=== PATIENT | female | born 1975 | race Caucasian/White ===

== ENCOUNTER 2016-07-14 11:40 | Emergency (ER) | payer BC ==
[~2016-07-14] VITALS: Ht 172.7 cm; Wt 136.0 kg
[~2016-07-14 11:40] MED LIST: IBUP-232 PO; ROBA750T PO
[2016-07-14 11:46] VITALS: BP 181/111; PULSE 99; RESP 17; TEMP 98.3; O2SAT 100
[2016-07-14] MEDS ORDERED: AMLO10 PO ×2 (13:01→13:10)
[2016-07-14] MEDS ORDERED: ZITHTAB PO (13:10)
--- NOTE | 2016-07-14 13:11 | PD ---
HPI Chief Complaint: Cold / Flu Symptoms Time Seen by Provider: 13:06 Travel History International Travel<30 days: No Contact w/Intl Traveler<30days: No Traveled to known affect area: No History of Present Illness HPI 41-year-old female with history of hypertension, smoking, presents to the ER today because she has had 2-3 days history of coughing with yellow phlegm production. She denies any shortness of breath, fevers, chest pains, or any other symptoms. She also states that she has ran out of her blood pressure medications and has not taken it for several weeks. She has noticed that her blood pressures have been high intermittently. She states that she has a pumping headache when they do get elevated. She states that she had headache initially when she was coming to the ER but states that the headache is mostly gone now. She denies any other issues. She states that she is in between primary care physicians and does not have one now. Modifying Factors: None Associated Signs & Symptoms: Cough, yellow phlegm production, mild headache, elevated blood pressure Risk Factors: Hypertension history 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 PRIOR TO REMOVAL ) Respiratory: No Immunizations Current: Yes Pneumonia: Yes Radiation Therapy: No Sleep Apnea: No Thyroid Disease: No Influenza Vaccination: No ?: Not LMP: HYSTO : 3 Para: 2 : 1 Tubal Ligation: Yes Past Surgical History Appendectomy: Yes Body Medical Devices: ABDOMENAL MESH FROM HERNIA SURGERY Hysterectomy: Yes (PARTIAL, OVARY AND FIBEROUS UTERUS.) Tonsillectomy: Yes (adnoids) Other Surgery: Yes (HERNIA REPAIR X 2 with mesh) Family History Family Hypercholesterolemia: Yes Social History Alcohol Use: Yes (OCC) Tobacco Use: Yes (1 PPD) Substance Use: No Allergies-Medications (Allergen,Severity, Reaction): Coded Allergies: Penicillin (Verified Allergy, Severe, Rash/SOB, 3/12/17) Sulfa (Verified Allergy, Severe, Rash/SOB, 07/14/16) Reported Meds & Prescriptions Reported Meds & Active Scripts Active Reported Norvasc (Amlodipine Besylate) 10 Mg Tab 10 Mg PO DAILY Review of Systems Except as stated in HPI: all other systems reviewed are Neg Physical Exam Narrative GENERAL: Obese well-developed middle age white female patient in no acute distress awake and oriented 3. SKIN: Warm and dry. HEAD: Atraumatic. Normocephalic. EYES: Pupils equal and round. No scleral icterus. No injection or drainage. ENT: No nasal bleeding or discharge. Mucous membranes pink and moist. NECK: Trachea midline. No JVD. CARDIOVASCULAR: Regular rate and rhythm. No murmur appreciated. RESPIRATORY: No accessory muscle use. Clear to auscultation. Breath sounds equal bilaterally. No crackles, wheezing, rhonchi. GASTROINTESTINAL: Abdomen soft, obese, non-tender, nondistended. Hepatic and splenic margins not palpable. MUSCULOSKELETAL: No obvious deformities. No clubbing. No cyanosis. No edema. NEUROLOGICAL: Awake and alert. No obvious cranial nerve deficits. Motor grossly within normal limits. Normal speech. PSYCHIATRIC: Appropriate mood and affect; insight and judgment normal. Data Data Last Documented VS Vital Signs Date Time Temp Pulse Resp B/P Pulse Ox O2 Delivery O2 Flow Rate FiO2 07/14/16 12:57 100 Room Air 07/14/16 11:46 98.3 99 17 181/111 [facility] Medical Decision Making Medical Screen Exam Complete: Yes Emergency Medical Condition: Yes Medical Record Reviewed: Yes Differential Diagnosis Coughing, yellow phlegm production, headache, elevated blood pressures bronchitis versus URI versus pneumonia versus COPD exacerbation Narrative Course Patient's blood pressure is down to 136/72 on my evaluation. She states her headache is basically nonexistent now. She does not have her blood pressure medications. At this point, my plan would be to refill her blood pressure medications. Pulmonary exam is essentially unremarkable. Considering her smoking history however my plan would be to give her antibiotics and have her follow-up with primary care physician. Return for any worsening in symptoms as necessary. The plan has been discussed with her and she states understanding. Diagnosis Primary Impression: Medication refill Additional Impression: Bronchitis Med/Other Pt SpecificInfo: Prescription(s) given Scripts Azithromycin (Zithromax Z-Pradeep)250 Mg [id number] Mg PO DIRECTED #1 DSPK Ref 0 500 MG (2 tabs) day 1, then 1 tab days 2-5. Prov:Tanvi Sharma MD 07/14/16 Amlodipine (Norvasc)10 Mg Tab10 Mg PO DAILY #30 TAB Ref 0 Prov:Tanvi Sharma MD 07/14/16 Disposition: 01 DISCHARGE HOME Condition: Stable Tanvi Shrama MD Jul 14, 2016 13:11
[2016-07-14 13:21] VITALS: BP 136/87; PULSE 90; RESP 18; O2SAT 100
== END 2016-07-14 13:22 | disposition home or self-care (01) ==
LOC: PHED 11:40
DX: J40 Bronchitis, not specified as acute or chronic (principal); F17.210 Nicotine dependence, cigarettes, uncomplicated; I10 Essential (primary) hypertension; K21.9 Gastro-esophageal reflux disease without esophagitis; Z76.0 Encounter for issue of repeat prescription
CPT/HCPCS: 99283

== ENCOUNTER 2016-09-14 22:58 | Emergency (ER) | payer BC ==
[~2016-09-14] VITALS: Ht 172.7 cm; Wt 142.0 kg
[~2016-09-14 22:58] MED LIST changes: +AMLO10 PO; -IBUP-232 PO; -ROBA750T PO; +ZITHTAB PO
[2016-09-14 23:03] VITALS: BP 148/94; PULSE 105; RESP 20; TEMP 97.9; O2SAT 97
[2016-09-14 23:15] VITALS: O2SAT 97
--- NOTE | 2016-09-14 23:24 | PD ---
HPI Chief Complaint: Injury Time Seen by Provider: 23:14 Travel History International Travel<30 days: No Contact w/Intl Traveler<30days: No Traveled to known affect area: No History of Present Illness HPI The patient is a 41-year-old female that complains of left leg pain and swelling today. She has a history of intermittent knee pain for the past 6 months. She states the pain is now an 8/10. She does have some pain around the calf of the left lower leg. She has never had DVT in the past. She denies any fever. She denies any chest pain or shortness of breath. Motrin has irritated her stomach in the past. 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 PRIOR TO REMOVAL ) Respiratory: No Immunizations Current: Yes Pneumonia: Yes Radiation Therapy: No Sleep Apnea: No Thyroid Disease: No ?: Not : 3 Para: 2 : 1 Tubal Ligation: Yes Past Surgical History Appendectomy: Yes Body Medical Devices: ABDOMENAL MESH FROM HERNIA SURGERY Hysterectomy: Yes (PARTIAL, OVARY AND FIBEROUS UTERUS.) Tonsillectomy: Yes (adnoids) Other Surgery: Yes (HERNIA REPAIR X 2 with mesh) Family History Family Hypercholesterolemia: Yes Social History Alcohol Use: Yes (OCC) Tobacco Use: Yes (1 PPD) Substance Use: No Allergies-Medications (Allergen,Severity, Reaction): Coded Allergies: Penicillin (Verified Allergy, Severe, Rash/SOB, 09/14/16) Sulfa (Verified Allergy, Severe, Rash/SOB, 09/14/16) Reported Meds & Prescriptions Reported Meds & Active Scripts Active Mobic (Meloxicam) 15 Mg Tab 15 Mg PO DAILY Percocet (Oxycodone-Acetaminophen) 5-325 mg Tab 1 Tab PO Q6H PRN Reported Norvasc (Amlodipine Besylate) 10 Mg Tab 10 Mg PO DAILY Review of Systems Except as stated in HPI: all other systems reviewed are Neg Physical Exam Narrative GENERAL: The patient is alert, obese, oriented 3 in moderate apparent distress with her left knee discomfort. Her vital signs show heart rate of 105 and blood pressure 148/94 but are otherwise normal. SKIN: Focused skin assessment warm/dry. HEAD: Atraumatic. Normocephalic. EYES: Pupils equal and round. No scleral icterus. No injection or drainage. ENT: No nasal bleeding or discharge. Mucous membranes pink and moist. NECK: Trachea midline. No JVD. CARDIOVASCULAR: Regular rate and rhythm. No murmur appreciated. RESPIRATORY: No accessory muscle use. Clear to auscultation. Breath sounds equal bilaterally. GASTROINTESTINAL: Abdomen soft, non-tender, nondistended. Hepatic and splenic margins not palpable. MUSCULOSKELETAL: No obvious deformities. No clubbing. No cyanosis. There is 2 + left lower extremity edema and 1+ right lower extremity edema. There is tenderness on the left calf but no cord is palpated there. There is tenderness on the knee, particularly lateral aspect of the left knee. No obvious deformity is noted on the knee. NEUROLOGICAL: Awake and alert. No obvious cranial nerve deficits. Motor grossly within normal limits. Normal speech. PSYCHIATRIC: Appropriate mood and affect; insight and judgment normal. Data Data Last Documented VS Vital Signs Date Time Temp Pulse Resp B/P Pulse Ox O2 Delivery O2 Flow Rate FiO2 09/14/16 23:15 97 09/14/16 23:03 97.9 105 20 148/94 Orders Us Leg Venous Doppler (09/14/16 23:20) Knee, Complete (4vws) (09/14/16 23:20) Ketorolac Inj (Toradol Inj) (09/15/16 00:45) Oxycodone-Acetamin 7.5-325 Mg (Percocet (09/15/16 00:45) MDM Medical Decision Making Medical Screen Exam Complete: Yes Emergency Medical Condition: Yes Medical Record Reviewed: Yes Interpretation(s) X-rays of the right knee are normal. The ultrasound of the left knee shows no evidence of DVT. Differential Diagnosis Arthrosis left knee, arthritis left knee, DVT, Narrative Course The patient has arthrosis of the left knee. Plan: She is to rest and is given Mobic. Diagnosis Primary Impression: Arthrosis of knee Additional Instructions: Get the weight off your knee and follow-up with orthopedics, hopefully next week. The Mobic is one tablet daily. Med/Other Pt SpecificInfo: Prescription(s) given Scripts Meloxicam (Mobic)15 Mg Tab15 Mg PO DAILY #30 TAB Ref 0 Prov:Harvinder Espinoas MD 09/15/16 Oxycodone-Acetaminophen (Percocet)5-325 mg Tab1 Tab PO Q6H PRN (PAIN) #30 TAB Ref 0 Prov:Harvinder Espinosa MD 09/15/16 Disposition: 01 DISCHARGE HOME Condition: Stable Harvinder Espinosa MD September 14, 2016 23:24
--- NOTE | 2016-09-15 00:11 | RADHPO ---
EXAM DATE/TIME: 09/14/2016 23:38 [facility] COMPARISON: No previous studies available for comparison. INDICATIONS : Left lateral knee pain post fall. MEDICAL HISTORY : None. SURGICAL HISTORY : None. ENCOUNTER: Initial ACUITY: 4 - 6 months PAIN SCORE: 8/10 LOCATION: Left lateral knee FINDINGS: Four view examination of the left knee demonstrates no evidence of fracture or dislocation. Bony min eralization is normal. The articular surfaces are intact. The suprapatellar soft tissues have a nor mal configuration. CONCLUSION: Unremarkable exam Nick Vick MD on September 15, 2016 at 0:10 Board Certified Radiologist. This report was verified electronically.
--- NOTE | 2016-09-15 00:30 | RADHPO ---
EXAM DATE/TIME: 09/15/2016 00:12 [facility] COMPARISON: No previous studies available for comparison. INDICATIONS : Left leg swelling and pain. MEDICAL HISTORY : HTN. Pneumonia. GERD. Anxiety. SURGICAL HISTORY : Tonsillectomy. Appendectomy. Tubal ligation. Adenoidectomy. Hyserectomy. Oophorectomy. Hernia repair x2 with mesh. ENCOUNTER: Initial ACUITY: 1 day PAIN SCORE: 8/10 LOCATION: Left leg. TECHNIQUE: Venous ultrasound of the leg was performed from the inguinal ligament to the proximal calf. Real-ahsan e, color Doppler and spectral tracing, compression and augmentation techniques were used. FINDINGS: There is normal compressibility of the deep venous system from the inguinal region to the proximal ca lf. No echogenic clot is seen in the lumen of the common femoral, femoral, popliteal, and posterior tibial veins. There is a normal response of the venous system to proximal and distal augmentation an d respiration. CONCLUSION: No evidence of DVT. Nick Vick MD on September 15, 2016 at 0:28 Board Certified Radiologist. This report was verified electronically.
[2016-09-15] MEDS ORDERED: MOBI15TA PO (00:43)
[2016-09-15] MEDS ORDERED: PERC5TAB12 PO (00:43)
[2016-09-15] MEDS ORDERED: KETOROLAC TROMETHAMINE 60 MG/2 ML (IM) VIAL IM ONE (00:45)
[2016-09-15] MEDS ORDERED: oxyCODONE/ACETAMINOPHEN 7.5 MG/325 MG TAB PO ONE (00:45)
== END 2016-09-15 01:10 | disposition home or self-care (01) ==
LOC: PHED 22:58
DX: M17.12 Unilateral primary osteoarthritis, left knee (principal); F41.9 Anxiety disorder, unspecified; I10 Essential (primary) hypertension
CPT/HCPCS: 73564; 93971; 96372; 99284; J1885

== ENCOUNTER 2016-10-05 14:07 | Emergency (ER) | payer SELFPAY ==
[~2016-10-05 14:07] MED LIST changes: +MOBI15TA PO; +PERC5TAB12 PO; -ZITHTAB PO
[2016-10-05 14:20] VITALS: BP 180/97; PULSE 98; RESP 18; O2SAT 97
[2016-10-05] MEDS ORDERED: cloNIDine HCL 0.1 MG TAB PO ONE (14:30)
--- NOTE | 2016-10-05 14:38 | PD ---
HPI Chief Complaint: Edema Time Seen by Provider: 14:28 Travel History International Travel<30 days: No Contact w/Intl Traveler<30days: No Traveled to known affect area: No History of Present Illness HPI Patient presents for swelling in her bilateral lower extremities and left shoulder pain. Reports dyspnea on exertion. Denies any nausea vomiting diarrhea or fever. Denies any cough. Denies any trauma misstep or fall. Normally takes Norvasc for blood pressure. Noncompliant for 2 weeks. 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 PRIOR TO REMOVAL ) Respiratory: No Immunizations Current: Yes Pneumonia: Yes Radiation Therapy: No Sleep Apnea: No Thyroid Disease: No ?: Not : 3 Para: 2 : 1 Tubal Ligation: Yes Past Surgical History Abdominal Surgery: Yes (HERNIORRHAPHY X 2) Appendectomy: Yes Body Medical Devices: ABDOMENAL MESH FROM HERNIA SURGERY Hysterectomy: Yes Tonsillectomy: Yes (adnoids) Other Surgery: Yes Family History Family Hypercholesterolemia: Yes Social History Alcohol Use: Yes (OCC) Tobacco Use: Yes (1 PPD) Substance Use: No Allergies-Medications (Allergen,Severity, Reaction): Coded Allergies: Penicillin (Verified Allergy, Severe, Rash/SOB, 10/05/16) Sulfa (Verified Allergy, Severe, Rash/SOB, 10/05/16) Reported Meds & Prescriptions Reported Meds & Active Scripts Active Reported Norvasc (Amlodipine Besylate) 10 Mg Tab 10 Mg PO DAILY Review of Systems General / Constitutional: No: Fever Eyes: No: Visual changes HENT: No: Headaches Cardiovascular: No: Chest Pain or Discomfort Respiratory: Positive: Shortness of Breath (shortness of breath is on exertion only, bilateral lower extremity edema) Gastrointestinal: No: Abdominal Pain Genitourinary: No: Dysuria Musculoskeletal: No: Pain Skin: No Rash Neurologic: No: Weakness Psychiatric: No: Depression Endocrine: No: Polydipsia Hematologic/Lymphatic: No: Easy Bruising Physical Exam Narrative GENERAL: Well-nourished, well-developed patient. SKIN: Focused skin assessment warm/dry. HEAD: Normocephalic. EYES: No scleral icterus. No injection or drainage. NECK: Supple, trachea midline. No JVD or lymphadenopathy. CARDIOVASCULAR: Regular rate and rhythm without murmurs, gallops, or rubs. RESPIRATORY: Breath sounds equal bilaterally. No accessory muscle use. GASTROINTESTINAL: Abdomen soft, non-tender, nondistended. MUSCULOSKELETAL: No cyanosis, no appreciable edema. BACK: Nontender without obvious deformity. No CVA tenderness. Examination of the left shoulder reveals full range of motion with mild discomfort no crepitus erythema or edema no bony deformities Data Data Last Documented VS Vital Signs Date Time Temp Pulse Resp B/P Pulse Ox O2 Delivery O2 Flow Rate FiO2 10/05/16 15:25 95 16 164/72 96 10/05/16 14:20 Room Air Orders Clonidine (Catapres) (10/05/16 14:30) Electrocardiogram (10/05/16 14:13) MDM Medical Decision Making Medical Screen Exam Complete: Yes Emergency Medical Condition: Yes Differential Diagnosis Medication noncompliance, fluid retention, obesity, left shoulder osteoarthritis Narrative Course Assessment and plan discussed with patient at bedside. Patient received clonidine with improvement of her blood pressure. EKG sinus rhythm rate of 96. Diagnosis Primary Impression: Hypertensive urgency Additional Impression: Fluid retention in legs Patient Instructions: General Instructions Additional Instructions: Encouraged smoking cessation, encouraged to follow-up with PCP, encouraged to return to ER with any new onset of symptoms Encouraged to observe salt in diet, encouraged elevation when able, encouraged weight loss, consider support hose with ambulation Urged medication compliance Med/Other Pt SpecificInfo: Prescription(s) given Scripts Hydrochlorothiazide 12.5 Mg Tab12.5 Mg PO DAILY #30 TAB Ref 0 Prov:Flakito Bah MD 10/05/16 Amlodipine (Norvasc)10 Mg Tab10 Mg PO DAILY #30 TAB Ref 0 Prov:Flakito Bah MD 10/05/16 Disposition: 01 DISCHARGE HOME Condition: Good Flakito Bah MD Oct 05, 2016 14:38
[2016-10-05 15:25] VITALS: BP 164/72; PULSE 95; RESP 16; O2SAT 96
[2016-10-05] MEDS ORDERED: AMLO10 PO (15:47)
[2016-10-05] MEDS ORDERED: HYDR12.56 PO (15:47)
--- NOTE | 2016-10-06 14:40 | EKG ---
Date Performed: 10/05/2016 Time Performed: 14:13:50 PTAGE: 41 years EKG: Within normal limits NO PREVIOUS TRACING DOCTOR: Joaquin Jama Interpretating Date/Time 10/06/2016 14:38:08
== END 2016-10-05 16:00 | disposition home or self-care (01) ==
LOC: PHED 14:07
DX: I10 Essential (primary) hypertension (principal); R60.0 Localized edema; M25.512 Pain in left shoulder; R06.09 Other forms of dyspnea; F17.210 Nicotine dependence, cigarettes, uncomplicated
CPT/HCPCS: 93005; 99284

== ENCOUNTER 2016-12-24 07:49 | Emergency (ER) | payer OTHER ==
[~2016-12-24] VITALS: Ht 170.2 cm; Wt 130.0 kg
[~2016-12-24 07:49] MED LIST changes: +HYDR12.56 PO; -MOBI15TA PO; -PERC5TAB12 PO
[2016-12-24 07:50] VITALS: BP 184/107; PULSE 110; RESP 20; TEMP 97.7; O2SAT 99
[2016-12-24 08:10] VITALS: BP 180/100; PULSE 103; RESP 17; O2SAT 97
--- NOTE | 2016-12-24 08:33 | PD ---
HPI Chief Complaint: Dizziness Time Seen by Provider: 08:33 Travel History International Travel<30 days: No Contact w/Intl Traveler<30days: No Traveled to known affect area: No History of Present Illness HPI 41-year-old female came to the emergency room with history of dizziness that started yesterday but has been really worse this morning. Patient says that yesterday when she was trying to get out of the bed she almost fell because the room started to spin. After that she laid down for a little bit and try to get up from the bed sideways which was not as bad. As the day went by the dizziness seemed to have subsided. Patient did not take her blood pressure medication thinking if her blood pressure was too low. This morning when she tried to get out of the bed again the dizziness started again. Her blood pressure this time was high. She has been nauseous but didn't vomit. Patient says that every time she tries to put her head back flat the dizziness gets worse. She had something similar 1 week ago but that subsided after a little while. Patient was hypertensive with blood pressure 180 systolic. [facility] Past Medical History Narrative Medical List of her past medical, surgical, social and family history is reviewed from the nursing note. 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 PRIOR TO REMOVAL ) Respiratory: No Immunizations Current: Yes Pneumonia: Yes Radiation Therapy: No Sleep Apnea: No Thyroid Disease: No ?: Not : 3 Para: 2 : 1 Tubal Ligation: Yes Past Surgical History Abdominal Surgery: Yes (HERNIORRHAPHY X 2) Appendectomy: Yes Body Medical Devices: ABDOMENAL MESH FROM HERNIA SURGERY Hysterectomy: Yes (partial) Tonsillectomy: Yes (adnoids) Other Surgery: Yes Family History Family Hypercholesterolemia: Yes Social History Alcohol Use: Yes (OCC) Tobacco Use: Yes (1 PPD) Substance Use: No Allergies-Medications (Allergen,Severity, Reaction): Coded Allergies: Sulfa (Sulfonamide Antibiotics) (Unverified Allergy, Severe, Rash/SOB, ) penicillin G (Unverified Allergy, Severe, Rash/SOB, 12/24/16) Comments List of her allergies reviewed from the nursing note. Reported Meds & Prescriptions Reported Meds & Active Scripts Active Meclizine (Meclizine HCl) 25 Mg Tab 25 Mg PO DIRECTED PRN Hydrochlorothiazide 12.5 Mg Tab 12.5 Mg PO DAILY Norvasc (Amlodipine Besylate) 10 Mg Tab 10 Mg PO DAILY Narrative Medication List of her home medications reviewed from the nursing note. Review of Systems Except as stated in HPI: all other systems reviewed are Neg Physical Exam Narrative GENERAL: Awake, alert, obese, mild distress SKIN: Focused skin assessment warm/dry. HEAD: Atraumatic. Normocephalic. EYES: Pupils equal and round. No scleral icterus. No injection or drainage. ENT: No nasal bleeding or discharge. Mucous membranes pink and moist. No nystagmus NECK: Trachea midline. No JVD. CARDIOVASCULAR: Regular rate and rhythm. No murmur appreciated. RESPIRATORY: No accessory muscle use. Clear to auscultation. Breath sounds equal bilaterally. GASTROINTESTINAL: Abdomen soft, non-tender, nondistended. Hepatic and splenic margins not palpable. MUSCULOSKELETAL: No obvious deformities. No clubbing. No cyanosis. No edema. NEUROLOGICAL: Awake and alert. No obvious cranial nerve deficits. Motor grossly within normal limits. Normal speech. NIH stroke score was 0 PSYCHIATRIC: Appropriate mood and affect; insight and judgment normal. Data Data Last Documented VS Vital Signs Date Time Temp Pulse Resp B/P (MAP) Pulse Ox O2 Delivery O2 Flow Rate FiO2 12/24/16 11:05 12/24/16 09:11 95 Room Air 12/24/16 08:10 103 17 12/24/16 07:50 97.7 Orders Orders Electrocardiogram (12/24/16 08:43) Complete Blood Count With Diff (12/24/16 08:43) Basic Metabolic Panel (Bmp) (12/24/16 08:43) Ct Brain W/O Iv Contrast(Rout) (12/24/16 08:43) Ecg Monitoring (12/24/16 08:43) Iv Access Insert/Monitor (12/24/16 08:43) Oximetry (12/24/16 08:43) Ondansetron Inj (Zofran Inj) (12/24/16 08:45) Sodium Chloride 0.9% Flush (Ns Flush) (12/24/16 08:45) Clonidine (Catapres) (12/24/16 08:45) Amlodipine (Norvasc) (12/24/16 08:45) Meclizine (Antivert) (12/24/16 08:45) Urinalysis - C+S If Indicated (12/24/16 08:47) Labs Laboratory Tests Test 12/24/16 09:00 12/24/16 09:07 Urine Color LIGHT-YELLOW Urine Turbidity CLEAR Urine pH 6.0 Urine Specific [place] 1.006 Urine Protein NEG mg/dL Urine Glucose (UA) NEG mg/dL Urine Ketones NEG mg/dL Urine Occult Blood TRACE Urine Nitrite NEG Urine Bilirubin NEG Urine Urobilinogen LESS THAN 2.0 MG/DL Urine Leukocyte Esterase MOD Urine RBC 2 /hpf Urine WBC 3 /hpf Urine Squamous Epithelial Cells 1 /hpf Microscopic Urinalysis Comment CULT NOT INDICATED White Blood Count 10.9 TH/MM3 Red Blood Count 5.11 MIL/MM3 Hemoglobin 14.2 GM/DL Hematocrit 42.1 % Mean Corpuscular Volume 82.5 FL Mean Corpuscular Hemoglobin 27.8 PG Mean Corpuscular Hemoglobin Concent 33.7 % Red Cell Distribution Width 14.0 % Platelet Count 344 TH/MM3 Mean Platelet Volume 7.9 FL Neutrophils (%) (Auto) 64.9 % Lymphocytes (%) (Auto) 28.1 % Monocytes (%) (Auto) 4.5 % Eosinophils (%) (Auto) 2.0 % Basophils (%) (Auto) 0.5 % Neutrophils # (Auto) 7.1 TH/MM3 Lymphocytes # (Auto) 3.1 TH/MM3 Monocytes # (Auto) 0.5 TH/MM3 Eosinophils # (Auto) 0.2 TH/MM3 Basophils # (Auto) 0.1 TH/MM3 CBC Comment DIFF FINAL Differential Comment Blood Urea Nitrogen 9 MG/DL Creatinine 0.59 MG/DL Random Glucose 142 MG/DL Calcium Level 9.5 MG/DL Sodium Level 137 MEQ/L Potassium Level 3.4 MEQ/L Chloride Level 102 MEQ/L Carbon Dioxide Level 25.0 MEQ/L Anion Gap 10 MEQ/L Estimat Glomerular Filtration Rate 112 ML/MIN [facility] Medical Decision Making Medical Screen Exam Complete: Yes Emergency Medical Condition: Yes Medical Record Reviewed: Yes (twelve-lead EKG was reviewed by me. Normal sinus rhythm, normal axis, nonspecific ST-T wave changes.) Interpretation(s) Twelve-lead EKG was reviewed by me. Normal sinus rhythm, normal axis, nonspecific ST-T wave changes, poor R-wave progression, tachycardia. Heart rate of 102 bpm. Differential Diagnosis BPV, cerebellar stroke, intracranial bleed Narrative Course 10:48 AM patient was given her dose of Norvasc as well as clonidine to bring the blood pressure down. She was given meclizine for the dizziness. Her workup came back negative including the head CT. I have given her instructions and she understands. Procedures EKG Prior to Arrival: No Diagnosis Primary Impression: BPV (benign positional vertigo) Qualified Codes: H81.10 - Benign paroxysmal vertigo, unspecified ear Additional Impression: Hypertension Qualified Codes: I10 - Essential (primary) hypertension Referrals: Primary Care Physician Additional Instructions: Please return to the ER if the condition worsens or any other new concerns. You should not be driving until the symptoms subside when you get a clearance from your primary care. Take the medication as per the prescription direction. For the first 48 hours he should take it continuously and then as needed. Take your blood pressure medications like you're supposed to. Med/Other Pt SpecificInfo: Prescription(s) given Scripts Meclizine (Meclizine) 25 Mg Tab 25 MG PO DIRECTED Y for VERTIGO, #20 TAB 0 Refills Prov: Arun Whitlock MD 12/24/16 Disposition: 01 DISCHARGE HOME Condition: Stable Arun Whitlock MD Dec 24, 2016 08:33
[2016-12-24] MEDS ORDERED: MECLIZINE HCL 25 MG TAB PO ONE (08:45)
[2016-12-24] MEDS ORDERED: SODIUM CHLORIDE 0.9% FLUSH 10 ML FLUSH IVF PRN (08:45)
[2016-12-24] MEDS ORDERED: cloNIDine HCL 0.1 MG TAB PO ONE (08:45)
[2016-12-24] MEDS ORDERED: ONDANSETRON HCL 4 MG/2 ML VIAL IVP ONE (08:45)
[2016-12-24 09:11] VITALS: O2SAT 95
[2016-12-24 09:30] LABS: BLOOD, URINE TRACE (NEG); GLUCOSE,URINE NEG (NEG); KETONE, URINE NEG (NEG); NITRITE,URINE NEG (NEG); SQUAMOUS EPITHELIAL CELL URINE 1 /hpf (0-5); URINE COLOR LIGHT-YELLOW (YELLW/STRAW)
[2016-12-24 09:33] LABS: AUTOMATED NEUTROPHIL # 7.1 TH/MM3 (1.8-7.7); BASOPHIL # 0.1 TH/MM3 (0-0.2); BASOPHIL % 0.5 % (0.0-2.0); EOSINOPHIL # 0.2 TH/MM3 (0-0.4); HEMATOCRIT 42.1 % (35.0-46.0); HEMO FLAGS DIFF FINAL; LYMPH % 28.1 % (9.0-44.0); LYMPHOCYTE # 3.1 TH/MM3 (1.0-4.8); MEAN CELL VOLUME 82.5 FL (80.0-100.0); MEAN CORPUSCULAR HEMOGLOBIN 27.8 PG (27.0-34.0); MEAN CORPUSCULAR HGB CONC 33.7 % (32.0-36.0); MONO % 4.5 % (0.0-8.0); NEUT % 64.9 % (16.0-70.0); PLATELET COUNT 344 TH/MM3 (150-450); RED BLOOD COUNT 5.11 MIL/MM3 (4.00-5.30); WHITE BLOOD COUNT 10.9 TH/MM3 (4.0-11.0)
[2016-12-24 09:35] LABS: COMMENT (UR) CULT NOT INDICATED; CULTURE IF INDICATED CULT NOT INDICATED
--- NOTE | 2016-12-24 09:42 | RADRPT ---
EXAM DATE/TIME: 12/24/2016 09:16 [facility] COMPARISON: No previous studies available for comparison. INDICATIONS : Dizziness. RADIATION DOSE: 56.35 CTDIvol (mGy) MEDICAL HISTORY : None SURGICAL HISTORY : Appendectomy. Hysterectomy. ENCOUNTER: Initial ACUITY: 2 days PAIN SCALE: 0/10 LOCATION: cranial TECHNIQUE: Multiple contiguous axial images were obtained of the head. Using automated exposure control and adj ustment of the mA and/or kV according to patient size, radiation dose was kept as low as reasonably a chievable to obtain optimal diagnostic quality images. DICOM format image data is available electro nically for review and comparison. FINDINGS: CEREBRUM: The ventricles are normal for age. No evidence of midline shift, mass lesion, hemorrhage or acute in farction. No extra-axial fluid collections are seen. POSTERIOR FOSSA: The cerebellum and brainstem are intact. The 4th ventricle is midline. The cerebellopontine angle i s unremarkable. EXTRACRANIAL: The visualized portion of the orbits is intact. SKULL: The calvaria is intact. No evidence of skull fracture. CONCLUSION: Normal examination. Mehrdad Gastelum MD on December 24, 2016 at 9:40 Board Certified Radiologist. This report was verified electronically.
[2016-12-24 09:49] LABS: POTASSIUM 3.4 MEQ/L (3.5-5.1)
[2016-12-24 10:38] VITALS: BP 130/80
[2016-12-24] MEDS ORDERED: MECL-62 PO (10:43)
--- NOTE | 2016-12-25 20:19 | EKG ---
Date Performed: 12/24/2016 Time Performed: 09:00:07 PTAGE: 41 years EKG: SINUS TACHYCARDIA POSSIBLE INFERIOR MYOCARDIAL INFARCTION ABNORMAL RHYTHM ECG PREVIOUS TRACING : 10/05/2016 14.13 Compared to prior tracing no significant change DOCTOR: Porfirio Bartlett Interpretating Date/Time 12/25/2016 20:18:27
== END 2016-12-24 11:07 | disposition home or self-care (01) ==
LOC: NEPE 07:49
DX: H81.10 Benign paroxysmal vertigo, unspecified ear (principal); I10 Essential (primary) hypertension
CPT/HCPCS: 70450; 80048; 81001; 85025; 93005; 96374; 99285; J2405

== ENCOUNTER 2017-02-23 16:50 | Emergency (ER) | payer OTHER ==
[~2017-02-23] VITALS: Ht 171.4 cm; Wt 135.2 kg
[~2017-02-23 16:50] MED LIST changes: +MECL-62 PO
[2017-02-23 16:51] VITALS: BP 159/99; PULSE 104; RESP 28; TEMP 97.9; O2SAT 97
[2017-02-23] MEDS ORDERED: SODIUM CHLOR 0.9% 1000 ML INJ 1,000 ML IV SCH (17:12)
[2017-02-23] MEDS ORDERED: MORPHINE SULFATE 4 MG/ML INJ IV PUSH ONE (17:15)
[2017-02-23] MEDS ORDERED: FAMOTIDINE 20 MG/2 ML VIAL IV PUSH ONE (17:15)
[2017-02-23] MEDS ORDERED: SODIUM CHLORIDE 0.9% FLUSH 10 ML FLUSH IV FLUSH PRN (17:15)
[2017-02-23] MEDS ORDERED: ONDANSETRON HCL 4 MG/2 ML VIAL IVP ONE (17:15)
--- NOTE | 2017-02-23 17:23 | PD ---
HPI Chief Complaint: Abdominal Pain Time Seen by Provider: 17:07 Travel History International Travel<30 days: No Contact w/Intl Traveler<30days: No Traveled to known affect area: No History of Present Illness HPI 42-year-old female complains of abdominal pain. Patient states that she started having severe right flank pain with radiation to right low abdomen last night. Patient states that the pain lasted about an hour so and resolved completely. Patient states that the pain started again this afternoon. Patient states the pain is severe pain sharp pain in cramping pain started right flank area with radiation the right groin area. Patient denies any fever chills. Patient states that she has nausea vomiting associate with the pain. Patient denies any dysuria or frequency. Patient denies any vaginal discharge or bleeding. Patient status post hysterectomy and appendectomy. Patient denies any history of kidney stone. Patient denies any history of gallbladder disease. On a scale of 1-10 the pain is a 10. 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 PRIOR TO REMOVAL ) Respiratory: No Immunizations Current: Yes Pneumonia: Yes Radiation Therapy: No Sleep Apnea: No Thyroid Disease: No Tetanus Vaccination: < 5 Years Influenza Vaccination: No ?: Not : 3 Para: 2 : 1 Tubal Ligation: Yes Past Surgical History Abdominal Surgery: Yes (HERNIORRHAPHY X 2) Appendectomy: Yes Body Medical Devices: ABDOMENAL MESH FROM HERNIA SURGERY Hysterectomy: Yes (PARTIAL) Tonsillectomy: Yes (adnoids) Other Surgery: Yes Family History Family Hypercholesterolemia: Yes Social History Alcohol Use: Yes (OCC) Tobacco Use: Yes (1 PPD) Substance Use: No Allergies-Medications (Allergen,Severity, Reaction): Coded Allergies: Sulfa (Sulfonamide Antibiotics) (Unverified Allergy, Severe, Rash/SOB, ) penicillin G (Unverified Allergy, Severe, Rash/SOB, 02/23/17) Reported Meds & Prescriptions Reported Meds & Active Scripts Active Hydrochlorothiazide 12.5 Mg Tab 12.5 Mg PO DAILY Norvasc (Amlodipine Besylate) 10 Mg Tab 10 Mg PO DAILY Review of Systems General / Constitutional: No: Fever Eyes: No: Visual changes HENT: No: Headaches Cardiovascular: No: Chest Pain or Discomfort Respiratory: No: Shortness of Breath Gastrointestinal: Positive: Nausea, Vomiting, Abdominal Pain Genitourinary: No: Dysuria Musculoskeletal: No: Pain Skin: No Rash Neurologic: No: Weakness Psychiatric: No: Depression Endocrine: No: Polydipsia Hematologic/Lymphatic: No: Easy Bruising Physical Exam Narrative GENERAL: Well-nourished, well-developed patient. SKIN: Focused skin assessment warm/dry. HEAD: Normocephalic. EYES: No scleral icterus. No injection or drainage. NECK: Supple, trachea midline. No JVD or lymphadenopathy. CARDIOVASCULAR: Regular rate and rhythm without murmurs, gallops, or rubs. RESPIRATORY: Breath sounds equal bilaterally. No accessory muscle use. GASTROINTESTINAL: Abdomen soft, nondistended. Moderate tenderness on palpation right flank area and right low quadrant of the abdomen. No rebound tenderness. No mass. MUSCULOSKELETAL: No cyanosis, or edema. BACK: Nontender without obvious deformity. No CVA tenderness. Neurologic exam normal. Data Data Last Documented VS Vital Signs Date Time Temp Pulse Resp B/P (MAP) Pulse Ox O2 Delivery O2 Flow Rate FiO2 02/23/17 18:27 98 Room Air 02/23/17 16:51 97.9 104 28 Orders Orders Complete Blood Count With Diff (02/23/17 17:12) Comprehensive Metabolic Panel (02/23/17 17:12) Lipase (02/23/17 17:12) Urinalysis - C+S If Indicated (02/23/17 17:12) Ct Abd/Pel W/O Iv Contrast (02/23/17 17:12) Iv Access Insert/Monitor (02/23/17 17:12) Ecg Monitoring (02/23/17 17:12) Oximetry (02/23/17 17:12) Morphine Inj (Morphine Inj) (02/23/17 17:15) Ondansetron Inj (Zofran Inj) (02/23/17 17:15) Sodium Chlor 0.9% 1000 Ml Inj (Ns 1000 M (02/23/17 17:12) Sodium Chloride 0.9% Flush (Ns Flush) (02/23/17 17:15) Famotidine Inj (Pepcid Inj) (02/23/17 17:15) Ketorolac Inj (Toradol Inj) (02/23/17 18:15) Labs Laboratory Tests Test 02/23/17 17:28 White Blood Count 12.6 TH/MM3 Red Blood Count 5.11 MIL/MM3 Hemoglobin 14.4 GM/DL Hematocrit 42.0 % Mean Corpuscular Volume 82.2 FL Mean Corpuscular Hemoglobin 28.1 PG Mean Corpuscular Hemoglobin Concent 34.2 % Red Cell Distribution Width 14.1 % Platelet Count 358 TH/MM3 Mean Platelet Volume 8.7 FL Neutrophils (%) (Auto) 66.3 % Lymphocytes (%) (Auto) 27.6 % Monocytes (%) (Auto) 4.6 % Eosinophils (%) (Auto) 1.0 % Basophils (%) (Auto) 0.5 % Neutrophils # (Auto) 8.4 TH/MM3 Lymphocytes # (Auto) 3.5 TH/MM3 Monocytes # (Auto) 0.6 TH/MM3 Eosinophils # (Auto) 0.1 TH/MM3 Basophils # (Auto) 0.1 TH/MM3 CBC Comment DIFF FINAL Differential Comment Urine Color YELLOW Urine Turbidity HAZY Urine pH 6.5 Urine Specific [place] 1.025 Urine Protein 30 mg/dL Urine Glucose (UA) TRACE mg/dL Urine Ketones TRACE mg/dL Urine Occult Blood SMALL Urine Nitrite NEG Urine Bilirubin NEG Urine Urobilinogen 2.0 MG/DL Urine Leukocyte Esterase TRACE Urine RBC 11 /hpf Urine WBC 4 /hpf Urine Squamous Epithelial Cells 24 /hpf Urine Transitional Epithelial Cells 1 /hpf Urine Amorphous Sediment RARE Urine Bacteria RARE /hpf Urine Mucus MANY /lpf Microscopic Urinalysis Comment CULT NOT INDICATED Blood Urea Nitrogen 8 MG/DL Creatinine 0.62 MG/DL Random Glucose 134 MG/DL Total Protein 7.8 GM/DL Albumin 3.1 GM/DL Calcium Level 9.7 MG/DL Alkaline Phosphatase 83 U/L Aspartate Amino Transf (AST/SGOT) 37 U/L Alanine Aminotransferase (ALT/SGPT) 25 U/L Total Bilirubin 0.5 MG/DL Sodium Level 135 MEQ/L Potassium Level 3.8 MEQ/L Chloride Level 101 MEQ/L Carbon Dioxide Level 22.1 MEQ/L Anion Gap 12 MEQ/L Estimat Glomerular Filtration Rate 105 ML/MIN Lipase 59 U/L [facility] Medical Decision Making Medical Screen Exam Complete: Yes Emergency Medical Condition: Yes Interpretation(s) Last Impressions Abdomen/Pelvis CT 02/23/17 1712 Signed Impressions: Service Date/Time: Thursday, February 23, 2017 17:32 - CONCLUSION: 1. No acute findings. No obstruction or free fluid. Previous appendectomy. Loop of small bowel extends over anterior aspect of mesh from ventral hernia repair, similar in appearance to 2014. Vinicius Tom MD 1843 PM. CBC WBC 12.6. Normal differential. CMP within normal limit. UA is positive for bacteria. Differential Diagnosis Differential diagnosis including nephrolithiasis, pyelonephritis, musculoskeletal, colitis, bowel obstruction, cholecystitis. Narrative Course 42-year-old female with right flank pain with radiation to right low quadrant abdomen. Diagnosis Primary Impression: Right flank pain Patient Instructions: General Instructions Additional Instructions: Take medication as needed for pain. Follow-up with personal physician. Return if worse. Med/Other Pt SpecificInfo: Prescription(s) given Scripts Tramadol (Ultram) 50 Mg Tab 50 MG PO Q6H Y for PAIN, #20 TAB 0 Refills Prov: Garcia Silva MD 02/23/17 Methocarbamol (Robaxin) 750 Mg Tab 750 MG PO QID for Pain, #40 TAB 0 Refills Prov: Garcia Silva MD 02/23/17 Meloxicam (Mobic) 15 Mg Tab 15 MG PO DAILY for Pain, #20 TAB 0 Refills Prov: Garcia Silva MD 02/23/17 Disposition: 01 DISCHARGE HOME Condition: Stable Garcia Silva MD Feb 23, 2017 17:23
--- NOTE | 2017-02-23 18:01 | RADRPT ---
EXAM DATE/TIME: 02/23/2017 17:32 [facility] COMPARISON: No previous studies available for comparison. INDICATIONS : Right flank pain today. ORAL CONTRAST: No oral contrast ingested. RADIATION DOSE: 33.87 CTDIvol (mGy) ; Patient body habitus MEDICAL HISTORY : Hypertension. SURGICAL HISTORY : Hysterectomy. Appendectomy. ENCOUNTER: Initial ACUITY: 1 day PAIN SCALE: 7/10 LOCATION: Right flank TECHNIQUE: Volumetric scanning of the abdomen and pelvis was performed. Using automated exposure control and ad justment of the mA and/or kV according to patient size, radiation dose was kept as low as reasonably achievable to obtain optimal diagnostic quality images. DICOM format image data is available electro nically for review and comparison. FINDINGS: Lung bases clear. Mild fatty liver. Spleen, adrenals, kidneys and pancreas unremarkable. No calcified gallstones or biliary ductal dilatation. There is a loop of small bowel which extends over the mesh from ventral hernia repair but without aura dence for incarceration or bowel obstruction. There is a 4 cm presumed cyst in the left adnexa. No free fluid or free air. Pars defects at the lumb osacral junction with probable spondylolisthesis. CONCLUSION: 1. No acute findings. No obstruction or free fluid. Previous appendectomy. Loop of small bowel extend s over anterior aspect of mesh from ventral hernia repair, similar in appearance to 2014. Vinicius Tom MD on February 23, 2017 at 17:47 Board Certified Radiologist. This report was verified electronically.
[2017-02-23] MEDS ORDERED: KETOROLAC TROMETHAMINE 30 MG/ML (IVP) VIAL IV PUSH ONE (18:15)
[2017-02-23 18:22] LABS: AUTOMATED NEUTROPHIL # 8.4 TH/MM3 (1.8-7.7); BASOPHIL # 0.1 TH/MM3 (0-0.2); BASOPHIL % 0.5 % (0.0-2.0); EOSINOPHIL # 0.1 TH/MM3 (0-0.4); HEMO FLAGS DIFF FINAL; LYMPH % 27.6 % (9.0-44.0); LYMPHOCYTE # 3.5 TH/MM3 (1.0-4.8); MEAN CELL VOLUME 82.2 FL (80.0-100.0); MEAN CORPUSCULAR HEMOGLOBIN 28.1 PG (27.0-34.0); MEAN CORPUSCULAR HGB CONC 34.2 % (32.0-36.0); MONO % 4.6 % (0.0-8.0); NEUT % 66.3 % (16.0-70.0); PLATELET COUNT 358 TH/MM3 (150-450); RED BLOOD COUNT 5.11 MIL/MM3 (4.00-5.30); RED CELL DISTRIBUTION WIDTH 14.1 % (11.6-17.2); WHITE BLOOD COUNT 12.6 TH/MM3 (4.0-11.0)
[2017-02-23 18:27] VITALS: O2SAT 98
[2017-02-23 18:27] LABS: ALT (GPT) 25 U/L (10-53); BACTERIA, URINE RARE /hpf; BLOOD, URINE SMALL (NEG); COMMENT (UR) CULT NOT INDICATED; CULTURE IF INDICATED CULT NOT INDICATED; GLUCOSE,URINE TRACE mg/dL (NEG); KETONE, URINE TRACE mg/dL (NEG); MUCUS URINE MANY /lpf (OCC); NITRITE,URINE NEG (NEG); PH, URINE 6.5 (5.0-8.5); SQUAMOUS EPITHELIAL CELL URINE 24 /hpf (0-5); TRANSITIONAL EPI CELLS, URINE 1 /hpf; URINE COLOR YELLOW (YELLW/STRAW)
[2017-02-23 18:30] LABS: ALKALINE PHOSPHATASE 83 U/L (45-117); TOTAL BILIRUBIN ADULT 0.5 MG/DL (0.2-1.0)
[2017-02-23 18:34] LABS: ANION GAP 12 MEQ/L (5-15); AST (GOT) 37 U/L (15-37); BICARBONATE 22.1 MEQ/L (21.0-32.0); BLOOD UREA NITROGEN 8 MG/DL (7-18); CHLORIDE 101 MEQ/L (98-107); GLOMERULAR FILTRATION RATE 105 ML/MIN (>89); POTASSIUM 3.8 MEQ/L (3.5-5.1); SODIUM (NA) 135 MEQ/L (136-145)
[2017-02-23] MEDS ORDERED: MOBI15TA PO (18:46)
[2017-02-23] MEDS ORDERED: ROBA750T PO (18:46)
[2017-02-23] MEDS ORDERED: ULTR50TA5 PO (18:47)
[2017-02-23 18:48] VITALS: BP 132/82; PULSE 86; RESP 18; O2SAT 96
== END 2017-02-23 19:27 | disposition home or self-care (01) ==
LOC: NEPD 16:50
DX: R10.9 Unspecified abdominal pain (principal); R11.2 Nausea with vomiting, unspecified; F41.9 Anxiety disorder, unspecified; K21.9 Gastro-esophageal reflux disease without esophagitis; I10 Essential (primary) hypertension; F17.200 Nicotine dependence, unspecified, uncomplicated; Z79.899 Other long term (current) drug therapy; Z88.2 Allergy status to sulfonamides; Z88.0 Allergy status to penicillin
CPT/HCPCS: 74176; 80053; 81001; 83690; 85025; 96374; 96375; 99285; J1885; J2270; J2405; J7030

== ENCOUNTER 2017-02-26 12:21 | Observation (INO) | payer OTHER ==
[2017-02-26] VITALS (7 sets, daily range): BP systolic 156–190; BP diastolic 92–110; PULSE 76–92; RESP 16–24; TEMP 96.6–97.4; O2SAT 95–99
[~2017-02-26] VITALS: Ht 170.2 cm; Wt 144.0 kg
[~2017-02-26 12:21] MED LIST changes: -MECL-62 PO; +MOBI15TA PO; +ROBA750T PO; +ULTR50TA5 PO
[2017-02-26] MEDS ORDERED: ONDANSETRON HCL 4 MG/2 ML VIAL IV PUSH ONE ×2 (13:00→15:15)
[2017-02-26] MEDS ORDERED: HYDROmorphone HCL PF 1 MG/ML VIAL IV PUSH ONE ×3 (13:00→15:15)
[2017-02-26] MEDS ORDERED: SODIUM CHLOR 0.9% 1000 ML INJ 1,000 ML IV ONE (13:00)
--- NOTE | 2017-02-26 13:05 | PD ---
HPI Chief Complaint: Chest Pain Time Seen by Provider: 12:42 Travel History International Travel<30 days: No Contact w/Intl Traveler<30days: No Traveled to known affect area: No History of Present Illness HPI This 42-year-old female is complaining of right flank pain. She's been having this pain for several days. Last Friday she went to the [facility] at [place]. She had a CT scan which did not reveal an etiology of the pain. She was released with tramadol and Robaxin. These medications have not been helping. Pain she is having is in the flank area he also has pain that goes to intermittent vomiting. She has a history of hernia repair by mesh. She says she had a fracture of T12 in 1997 and has had intermittent back pain since then. She has not had a bowel movement in 3 days. She has a history of a partial hysterectomy. She says the pain is constant and is aggravated by movement. She has not been eating well and often vomits after eating. She thinks that eating makes the pain worse. The patient says she has vomited 8 or 9 times today. He said the flank pain she also has some right-sided abdominal pain. She has a history of hernia repair with mesh. CT scan of the abdomen and pelvis was done Friday and was negative PFSH Past Medical History Asthma: No Blood Disorders: No Anxiety: Yes (HISTORY OF IN THE PAST ) Depression: No Heart Rhythm Problems: No Cancer: No Cardiovascular Problems: Yes High Cholesterol: No Chemotherapy: No Chest Pain: No Congestive Heart Failure: No COPD: No Diabetes: No Diminished Hearing: No Endocrine: No Gastrointestinal Disorders: Yes (ACID REFLUX ) GERD: Yes Genitourinary: No Hypertension: Yes Immune Disorder: No Implanted Vascular Access Dvce: Yes Musculoskeletal: No Neurologic: No Psychiatric: No Reproductive: Yes (OVARY REMOVED AND 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 PRIOR TO REMOVAL ) Respiratory: No Immunizations Current: Yes Pneumonia: Yes Radiation Therapy: No Sleep Apnea: No Thyroid Disease: No ?: Not : 3 Para: 2 : 1 Tubal Ligation: Yes Past Surgical History Abdominal Surgery: Yes (HERNIORRHAPHY X 2) Appendectomy: Yes Body Medical Devices: ABDOMENAL MESH FROM HERNIA SURGERY Hysterectomy: Yes (PARTIAL AND TUBAL) Tonsillectomy: Yes (adnoids) Other Surgery: Yes Family History Family Hypercholesterolemia: Yes Social History Alcohol Use: Yes (OCC) Tobacco Use: Yes (1 PPD) Substance Use: No Allergies-Medications (Allergen,Severity, Reaction): Coded Allergies: Sulfa (Sulfonamide Antibiotics) (Unverified Allergy, Severe, Rash/SOB, ) penicillin G (Unverified Allergy, Severe, Rash/SOB, 02/26/17) Reported Meds & Prescriptions Reported Meds & Active Scripts Active Ultram (Tramadol HCl) 50 Mg Tab 50 Mg PO Q6H PRN Robaxin (Methocarbamol) 750 Mg Tab 750 Mg PO QID Hydrochlorothiazide 12.5 Mg Tab 12.5 Mg PO DAILY Norvasc (Amlodipine Besylate) 10 Mg Tab 10 Mg PO DAILY Review of Systems General / Constitutional: No: Fever, Chills Eyes: No: Diploplia, Blurred Vision HENT: No: Headaches Cardiovascular: No: Chest Pain or Discomfort Respiratory: No: Cough Gastrointestinal: Positive: Nausea, Vomiting, Abdominal Pain Genitourinary: Positive: Flank Pain Musculoskeletal: No: Myalgias, Arthralgias Skin: No Rash, No Itching Neurologic: No: Weakness Hematologic/Lymphatic: No: Easy Bruising Physical Exam Narrative GENERAL: Well-developed female, morbidly obese SKIN: Focused skin assessment warm/dry. HEAD: Atraumatic. Normocephalic. EYES: Pupils equal and round. No scleral icterus. No injection or drainage. ENT: No nasal bleeding or discharge. Mucous membranes pink and moist. NECK: Trachea midline. No JVD. CARDIOVASCULAR: Regular rate and rhythm. No murmur appreciated. RESPIRATORY: No accessory muscle use. Clear to auscultation. Breath sounds equal bilaterally. GASTROINTESTINAL: Abdomen soft, appears to be some right upper quadrant tenderness and somewhat diffuse abdominal tenderness without rigidity. nondistended. Hepatic and splenic margins not palpable. Site of the most pain is the right CVA area MUSCULOSKELETAL: No obvious deformities. No clubbing. No cyanosis. No edema. No midline tenderness of the back. She she has a tender area in the right flank area NEUROLOGICAL: Awake and alert. No obvious cranial nerve deficits. Motor grossly within normal limits. Normal speech. PSYCHIATRIC: Appropriate mood and affect; insight and judgment normal. Data Data Last Documented VS Vital Signs Date Time Temp Pulse Resp B/P (MAP) Pulse Ox O2 Delivery O2 Flow Rate FiO2 02/26/17 16:02 92 16 173/92 (119) 95 Room Air 02/26/17 12:41 97.4 Orders Orders Urinalysis - C+S If Indicated (02/26/17 12:24) Complete Blood Count With Diff (02/26/17 12:49) Comprehensive Metabolic Panel (02/26/17 12:49) Lipase (02/26/17 12:49) Us Abdomen Gallbladder (02/26/17 12:49) Sodium Chlor 0.9% 1000 Ml Inj (Ns 1000 M (02/26/17 13:00) Ondansetron Inj (Zofran Inj) (02/26/17 13:00) Hydromorphone Pf Inj (Dilaudid Pf Inj) (02/26/17 13:00) Hydromorphone Pf Inj (Dilaudid Pf Inj) (02/26/17 13:30) Ct Thor Spine W/O Contrast (02/26/17 13:53) Ketorolac Inj (Toradol Inj) (02/26/17 14:00) Potassium Chloride (Kcl) (02/26/17 15:00) Ondansetron Inj (Zofran Inj) (02/26/17 15:15) Hydromorphone Pf Inj (Dilaudid Pf Inj) (02/26/17 15:15) Ns + Kcl 40 Meq Inj (Ns + Kcl 40 Meq Inj (02/26/17 15:30) Electrocardiogram (02/26/17 12:38) Prochlorperazine Inj (Compazine Inj) (02/26/17 16:00) Lorazepam Inj (Ativan Inj) (02/26/17 16:00) Admit Order (Ed Use Only) (02/26/17 16:02) Place In Observation (02/26/17 ) Vital Signs (Adult) LOLA.Q4H (02/26/17 16:04) Diet Heart Healthy (02/26/17 Dinner) Activity Bed Rest With Brp (02/26/17 16:04) Clonidine (Catapres) (02/26/17 16:15) Amlodipine (Norvasc) (02/26/17 16:15) Hydrochlorothiazide (Microzide) (02/27/17 09:00) Labs Laboratory Tests Test 02/26/17 12:45 02/26/17 14:05 White Blood Count 13.0 TH/MM3 Red Blood Count 5.30 MIL/MM3 Hemoglobin 14.1 GM/DL Hematocrit 43.2 % Mean Corpuscular Volume 81.6 FL Mean Corpuscular Hemoglobin 26.6 PG Mean Corpuscular Hemoglobin Concent 32.6 % Red Cell Distribution Width 12.9 % Platelet Count 406 TH/MM3 Mean Platelet Volume 8.3 FL Neutrophils (%) (Auto) 73.2 % Lymphocytes (%) (Auto) 16.4 % Monocytes (%) (Auto) 5.2 % Eosinophils (%) (Auto) 0.6 % Basophils (%) (Auto) 4.6 % Neutrophils # (Auto) 9.5 TH/MM3 Lymphocytes # (Auto) 2.1 TH/MM3 Monocytes # (Auto) 0.7 TH/MM3 Eosinophils # (Auto) 0.1 TH/MM3 Basophils # (Auto) 0.6 TH/MM3 CBC Comment DIFF FINAL Differential Comment Blood Urea Nitrogen 7 MG/DL Creatinine 0.63 MG/DL Random Glucose 170 MG/DL Total Protein 7.9 GM/DL Albumin 3.1 GM/DL Calcium Level 9.0 MG/DL Alkaline Phosphatase 91 U/L Aspartate Amino Transf (AST/SGOT) 19 U/L Alanine Aminotransferase (ALT/SGPT) 27 U/L Total Bilirubin 0.4 MG/DL Sodium Level 136 MEQ/L Potassium Level 3.1 MEQ/L Chloride Level 102 MEQ/L Carbon Dioxide Level 23.7 MEQ/L Anion Gap 10 MEQ/L Estimat Glomerular Filtration Rate 103 ML/MIN Lipase 65 U/L Urine Collection Type CLEAN CATCH Urine Color YELLOW Urine Turbidity CLEAR Urine pH 7.0 Urine Specific [place] 1.018 Urine Protein NEG mg/dL Urine Glucose (UA) NEG mg/dL Urine Ketones 15 mg/dL Urine Occult Blood TRACE Urine Nitrite NEG Urine Bilirubin NEG Urine Leukocyte Esterase NEG Urine RBC 4-9 /hpf Urine WBC 3-5 /hpf Urine Squamous Epithelial Cells 6-8 /hpf Microscopic Urinalysis Comment CULT NOT INDICATED Urine Collection Time 14:05 [facility] Medical Decision Making Medical Screen Exam Complete: Yes Emergency Medical Condition: Yes Medical Record Reviewed: Yes Differential Diagnosis Differential includes biliary colic, musculoskeletal pain, ureteral colic Narrative Course Patient has been given IV fluids and repeated doses of Dilaudid. She has had some ongoing vomiting is continuing to complain of pain. She was also given Toradol. I was concerned that she might have a biliary disease it was not apparent on the CT scan and I ordered an ultrasound of the gallbladder which has been read as negative. CT scan of the thoracic spine shows a compression fracture at T12 which the patient has been aware of. There is moderate spinal canal stenosis of the central canal measuring 9 mm. There is mild bony neural foraminal stenosis on the right at T11-T12. This lady's pain is a little higher than I would expect with a T 12 radiculopathy and I would not expect a radiculopathy to cause such as vomiting Patient continues to complain of pain and she has ongoing vomiting even after 2 doses of Zofran. She has been given Compazine and Ativan. Etiology for the pain is not clear. She does have a tender area in the flank but she at times feels like the pain is deep. Diagnostic studies have not revealed an etiology for pain Diagnosis Primary Impression: Intractable pain Additional Impression: Intractable vomiting Qualified Codes: R11.2 - Nausea with vomiting, unspecified Admitting Information Admitting Physician Requests: Observation Asif Encinas MD Feb 26, 2017 13:05
[2017-02-26 13:08] LABS: AUTOMATED NEUTROPHIL # 9.5 TH/MM3 (1.8-7.7); BASOPHIL # 0.6 TH/MM3 (0-0.2); BASOPHIL % 4.6 % (0.0-2.0); EOSINOPHIL # 0.1 TH/MM3 (0-0.4); EOSINOPHIL % 0.6 % (0.0-4.0); HEMATOCRIT 43.2 % (35.0-46.0); HEMOGLOBIN 14.1 GM/DL (11.6-15.3); LYMPH % 16.4 % (9.0-44.0); LYMPHOCYTE # 2.1 TH/MM3 (1.0-4.8); MEAN CELL VOLUME 81.6 FL (80.0-100.0); MEAN CORPUSCULAR HEMOGLOBIN 26.6 PG (27.0-34.0); MEAN CORPUSCULAR HGB CONC 32.6 % (32.0-36.0); MEAN PLATELET VOLUME 8.3 FL (7.0-11.0); MONO % 5.2 % (0.0-8.0); MONOCYTE # 0.7 TH/MM3 (0-0.9); NEUT % 73.2 % (16.0-70.0); PLATELET COUNT 406 TH/MM3 (150-450); RED CELL DISTRIBUTION WIDTH 12.9 % (11.6-17.2)
[2017-02-26 13:18] LABS: CHLORIDE 102 MEQ/L (98-107); SODIUM (NA) 136 MEQ/L (136-145)
[2017-02-26 13:21] LABS: ALBUMIN 3.1 GM/DL (3.4-5.0); BICARBONATE 23.7 MEQ/L (21.0-32.0); BLOOD UREA NITROGEN 7 MG/DL (7-18); GLUCOSE,RANDOM 170 MG/DL (74-106); LIPASE 65 U/L (73-393)
[2017-02-26 13:24] LABS: ALT (GPT) 27 U/L (10-53); AST (GOT) 19 U/L (15-37); CREATININE 0.63 MG/DL (0.50-1.00); GLOMERULAR FILTRATION RATE 103 ML/MIN (>89)
[2017-02-26 13:26] LABS: TOTAL BILIRUBIN ADULT 0.4 MG/DL (0.2-1.0); TOTAL PROTEIN 7.9 GM/DL (6.4-8.2)
[2017-02-26 13:27] LABS: ALKALINE PHOSPHATASE 91 U/L (45-117)
[2017-02-26] MEDS ORDERED: KETOROLAC TROMETHAMINE 30 MG/ML (IVP) VIAL IV PUSH ONE (14:00)
[2017-02-26 14:14] LABS: BILIRUBIN, URINE NEG (NEG); BLOOD, URINE TRACE (NEG); GLUCOSE,URINE NEG (NEG); KETONE, URINE 15 mg/dL (NEG); NITRITE,URINE NEG (NEG); URINE LEUKOCYTE ESTERASE NEG (NEG)
[2017-02-26 14:20] LABS: URINE COLOR YELLOW (YELLW/STRAW)
--- NOTE | 2017-02-26 14:46 | RADRPT ---
EXAM DATE/TIME: 02/26/2017 13:31 [facility] COMPARISON: US ABDOMEN - GALLBLADDER, October 23, 2013, 13:40. INDICATIONS : Right upper quadrant pain. MEDICAL HISTORY : Hypertension. Gastroesophageal reflux disease. SURGICAL HISTORY : Appendectomy. Tubal ligation. Hysterectomy. Adenoidectomy. Herniorrhaphy. Oophorectomy. ENCOUNTER: Initial ACUITY: 1 week PAIN SCORE: 7/10 LOCATION: Right upper quadrant MEASUREMENTS: LIVER: 19.2 cm length COMMON DUCT: 6 mm RIGHT KIDNEY: 11.1 z 5.5 x 5.6 cm FINDINGS: LIVER: Homogeneous echotexture and mildly increased acoustic attenuation without focal lesion or ductal dila tation. Hepatopedal flow single portal vein. COMMON DUCT: No intraluminal mass or stone visualized. GALLBLADDER: Contains no stones, demonstrates no wall thickening or pericholecystic fluid. PANCREAS: The visualized portions are within normal limits. RIGHT KIDNEY: No evidence of hydronephrosis, stone, or mass. CONCLUSION: 1. Hepatomegaly without focal lesion. 2. No gallstones seen. Tommy Lugo MD on February 26, 2017 at 14:26 Board Certified Radiologist. This report was verified electronically.
[2017-02-26] MEDS ORDERED: POTASSIUM CHLORIDE 20 MEQ CONTROLLED RELEASE TAB PO ONE ×2 (15:00→20:00)
[2017-02-26] MEDS: NS + KCL 40 MEQ INJ 1,000 ML IV SCH (15:33)
--- NOTE | 2017-02-26 15:56 | RADRPT ---
EXAM DATE/TIME: 02/26/2017 14:56 [facility] COMPARISON: CHEST PA & LAT, October 17, 2015, 22:57. CT ABDOMEN & PELVIS W CONTRAST, October 23, 2013, 16:19. CT ABDO MEN & PELVIS W/O CONTRAST, February 23, 2017, 17:32. INDICATIONS : Upper back pain. RADIATION DOSE: 43.56 CTDIvol (mGy) MEDICAL HISTORY : Hypertension. SURGICAL HISTORY : Hysterectomy. ENCOUNTER: Initial ACUITY: 1 day PAIN SCALE: 8/10 LOCATION: Thoracic spine TECHNIQUE: Volumetric scanning of the thoracic spine was performed. Multiplanar reconstructions in the sagittal , coronal and oblique axial planes were performed. Using automated exposure control and adjustment o f the mA and/or kV according to patient size, radiation dose was kept as low as reasonably achievable to obtain optimal diagnostic quality images. DICOM format image data is available electronically f or review and comparison. FINDINGS: There is a compression fracture of the T12 vertebral body with resultant approximately 60% loss of ve rtebral body height. This appears grossly unchanged from prior chest radiographs. There is some retro pulsion of fragments along the posterior superior endplate. Central canal measures approximately 9 mm at this level. There is associated increased kyphosis at this level. Sagittal alignment is otherwise maintained. Remaining vertebral body heights appear intact. There is no significant prevertebral hem atoma. Visualized portions of the lungs demonstrate no significant pneumothorax, effusion, or consolidation. Visualized portions of the thoracic aorta are non-aneurysmal. Although there is disc space loss in the lower thoracic spine, there is no gross herniation or bony s abe canal narrowing at the remaining levels. There is mild bony neural foraminal stenosis on the ri ght at T11-12. Remaining neural foramina are grossly patent. CONCLUSION: 1. Grossly stable appearance of moderate to severe T12 compression fracture in comparison to [address] [facility] [address] radiograph. There is resultant moderate spinal canal stenosis secondary to retropulsed fragments n ear the superior endplate with central canal measuring up to 9 mm. There is also mild bony neural for aminal stenosis on the right at T11-12. Jackson Paige MD on February 26, 2017 at 15:42 Board Certified Radiologist. This report was verified electronically.
[2017-02-26] MEDS ORDERED: PROCHLORPERAZINE INJ 10 MG/2 ML VIAL IV PUSH ONE (16:00)
[2017-02-26] MEDS ORDERED: LORazepam 2 MG/ML VIAL IV PUSH ONE (16:00)
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
[2017-02-26] MEDS: cloNIDine HCL 0.1 MG TAB PO PRN (17:32)
[2017-02-26] MEDS ORDERED: LORazepam 2 MG/ML VIAL IM PRN (18:00)
[2017-02-26] MEDS ORDERED: ONDANSETRON HCL 4 MG/2 ML VIAL IV PUSH PRN (18:00)
[2017-02-26] MEDS ORDERED: PROCHLORPERAZINE INJ 10 MG/2 ML VIAL IV PUSH PRN (18:00)
[2017-02-26] MEDS: GABAPENTIN 100 MG CAP PO SCH (18:35)
[2017-02-26] MEDS: ENOXAPARIN SODIUM 30 MG/0.3 ML SYRINGE SQ SCH (19:59)
[2017-02-26] MEDS: MORPHINE SULFATE 2 MG/ML INJ IV PUSH PRN (19:59)
[2017-02-26] MEDS: methylPREDNISolone SOD SUCC 40 MG/1 ML VIAL IV PUSH SCH (20:00)
[2017-02-26] MEDS: CYCLOBENZAPRINE HCL 10 MG TAB PO PRN (20:00)
[2017-02-26] MEDS ORDERED: DOCUSATE SODIUM 50 MG/SENNA 8.6 MG TAB PO PRN (21:30)
[2017-02-26] MEDS ORDERED: MAGNESIUM HYDROXIDE SUSP 30 ML CUP PO PRN (21:30)
[2017-02-27] VITALS: BP_SYST 148; BP_SYST 154; BP_DIAS 102; BP_DIAS 81; PULSE 87; PULSE 93; RESP 20; TEMP 97.3; TEMP 98.6; O2SAT 93; O2SAT 94
[2017-02-27] MEDS: NS + KCL 40 MEQ INJ 1,000 ML IV SCH (00:05)
[2017-02-27] MEDS: MORPHINE SULFATE 2 MG/ML INJ IV PUSH PRN ×5 (01:21→19:38)
[2017-02-27] MEDS: cloNIDine HCL 0.1 MG TAB PO PRN (01:21)
[2017-02-27 04:00] VITALS: BP 129/88; PULSE 82; RESP 18; TEMP 97.5; O2SAT 93
[2017-02-27] MEDS: CYCLOBENZAPRINE HCL 10 MG TAB PO PRN (05:14)
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
[2017-02-27 07:51] LABS: BICARBONATE 25.8 MEQ/L (21.0-32.0); CALCIUM 8.8 MG/DL (8.5-10.1); CREATININE 0.51 MG/DL (0.50-1.00)
[2017-02-27 08:00] VITALS: BP 139/76; PULSE 81; RESP 18; TEMP 97.1; O2SAT 94
[2017-02-27] MEDS ORDERED: HYDROCHLOROTHIAZIDE 12.5 MG CAP PO SCH (09:00)
[2017-02-27] MEDS: methylPREDNISolone SOD SUCC 40 MG/1 ML VIAL IV PUSH SCH ×2 (09:40→19:37)
[2017-02-27] MEDS: GABAPENTIN 100 MG CAP PO SCH ×3 (09:41→17:48)
[2017-02-27] MEDS ORDERED: LACTULOSE SYRUP 20 GM/30 ML CUP PO ONE (11:00)
[2017-02-27 12:00] VITALS: BP 134/82; PULSE 84; RESP 18; TEMP 97.3; O2SAT 95
--- NOTE | 2017-02-27 14:59 | EKG ---
Date Performed: 02/26/2017 Time Performed: 12:38:04 PTAGE: 42 years EKG: Sinus rhythm NORMAL ECG PREVIOUS TRACING : 12/24/2016 09.00 Compared to prior tracing no significant change DOCTOR: Ellen Clements Interpretating Date/Time 02/27/2017 14:54:12
[2017-02-27 16:00] VITALS: BP 134/68; PULSE 97; RESP 18; TEMP 98.1; O2SAT 93
[2017-02-27 18:32] LABS: HEMOGLOBIN A1C 6.5 % (4.3-6.0)
[2017-02-27] MEDS: ENOXAPARIN SODIUM 30 MG/0.3 ML SYRINGE SQ SCH (19:38)
[2017-02-27 20:00] VITALS: BP 142/75; PULSE 94; RESP 20; TEMP 96.3; O2SAT 94
[2017-02-28] VITALS: BP 121/71; PULSE 91; RESP 20; TEMP 96.8; O2SAT 94
[2017-02-28] MEDS: MORPHINE SULFATE 2 MG/ML INJ IV PUSH PRN (01:46)
[2017-02-28] MEDS: CYCLOBENZAPRINE HCL 10 MG TAB PO PRN (01:49)
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
[2017-02-28] MEDS ORDERED: SENN1TAB PO (07:27)
[2017-02-28] MEDS ORDERED: HYDR-3533 PO (07:27)
[2017-02-28] MEDS ORDERED: GABA100C4 PO (07:27)
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
[2017-02-28 07:50] VITALS: BP 149/72; PULSE 71; RESP 20; TEMP 96.2; O2SAT 92
== END 2017-02-28 09:06 | disposition home or self-care (01) ==
LOC: PHED 12:21 → PHEDA 16:04 → PH3A 18:42
PROVIDERS: ADMIT Family Medicine; ATTEND Family Medicine
DX: R07.9 Chest pain, unspecified (principal); R10.9 Unspecified abdominal pain; R11.2 Nausea with vomiting, unspecified; F41.9 Anxiety disorder, unspecified; K21.9 Gastro-esophageal reflux disease without esophagitis; I10 Essential (primary) hypertension; F17.210 Nicotine dependence, cigarettes, uncomplicated; Z79.899 Other long term (current) drug therapy; E66.01 Morbid (severe) obesity due to excess calories; M48.04 Spinal stenosis, thoracic region; M54.14 Radiculopathy, thoracic region; R16.0 Hepatomegaly, not elsewhere classified; S22.080S Wedge compression fracture of T11-T12 vertebra, sequela
CPT/HCPCS: 72128; 76705; 80048; 80053; 81001; 83036; 83690; 85025; 93005; 96361; 96365; 96366; 96375; 96376; 97116; 97162; 99285; G0378; G8987; G8988; J0780; J1170; J1650; J1885; J2060; J2270; J2405; J2920; J3480; J7030

== ENCOUNTER 2017-05-26 22:13 | Emergency (ER) | payer OTHER ==
[~2017-05-26 22:13] MED LIST changes: +GABA100C4 PO; +HYDR-3533 PO; -MOBI15TA PO; +SENN1TAB PO; -ULTR50TA5 PO
== END 2017-05-26 22:51 | disposition left against medical advice (07) ==
LOC: PHED 22:13
DX: R05 Cough (principal)
CPT/HCPCS: 99281

== ENCOUNTER 2017-10-20 18:33 | Emergency (ER) | payer OTHER ==
[~2017-10-20] VITALS: Ht 170.2 cm; Wt 146.7 kg
[2017-10-20 18:45] VITALS: BP 191/103; PULSE 99; RESP 16; TEMP 98.3; O2SAT 96
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
== END 2017-10-20 20:30 | disposition home or self-care (01) ==
LOC: PHEFT 18:33
DX: M25.561 Pain in right knee (principal); I10 Essential (primary) hypertension; Z72.0 Tobacco use; Z88.2 Allergy status to sulfonamides; Z88.0 Allergy status to penicillin; X50.1XXA Overexertion from prolonged static or awkward postures, initial encounter; Y93.01 Activity, walking, marching and hiking; Y92.831 Amusement park as the place of occurrence of the external cause
CPT/HCPCS: 99282